=== PATIENT | female | born 1995 | race Caucasian/White ===

== ENCOUNTER 2023-03-30 04:49 | Inpatient (IN) | payer BC, SELFPAY ==
[2023-03-30] VITALS (86 sets, daily range): BP systolic 86–133; BP diastolic 17–97; PULSE 60–103; RESP 16; TEMP 36.1–37.5; O2SAT 96–100; BMI 38.5
--- NOTE | 2023-03-30 04:49 | LDADM ---
This patient, Dasha Sung, was admitted to Labor/Delivery/Recovery 103 on 03/30/23 at 04:49. Plans for labor, pain management and were discussed with patient. Patient/family oriented to hospital policies and general routines including ID bracelet, bed and alarms, visiting hours, pain management, procedures, bathroom and other care routines, personal items, smoking policy, room service/diet and guest tray routines, security routines, and visiting hours. Patient/Family are encouraged to report perceived risks to care and to ask questions if they do not understand what they are told or what they should do. See [facility]BIX for further documentation.
[2023-03-30 05:36] LABS: Basophils Percent Auto 0.2 % (0.2-1.2); Eosinophils Absolute Auto 0.1 K/mm3 (0-0.3); Eosinophils Percent Auto 0.7 % (0-4.4); Hematocrit 35.5 % (37.0-47.0); Hemoglobin 12.7 g/dL (12.0-15.0); Immature Granulocyte Absolute 0.05 K/mm3 (0.00-0.031); Immature Granulocyte Percent A 0.4 % (0-0.5); Lymphocytes Absolute Auto 2.75 K/mm3 (0.9-3.2); Lymphocytes Percent Auto 24.6 % (18.3-44.2); Mean Corpuscular HGB Conc 35.8 g/dl (32-36); Mean Corpuscular Hemoglobin 33.2 pg (26-34); Mean Corpuscular Volume 92.7 fl (80-100); Mean Platelet Volume 10.7 fl (7.4-10.4); Monocytes Absolute Auto 0.6 K/mm3 (0.1-0.6); Monocytes Percent Auto 5.2 % (2.6-8.5); Neutrophils Absolute Auto 7.7 K/mm3 (1.3-6.7); Neutrophils Percent Auto 68.9 % (45.5-73.1); Platelet Count Result 197 k/mm3 (150-375); Red Blood Count 3.83 M/mm3 (4.2-5.4); Red Cell Distribution Width 12.5 % (11.5-14.5); White Blood Count 11.2 K/mm3 (4.5-10.0)
[2023-03-30] MEDS: LACTATED RINGERS 1,000 ML 125 ML IV CONT ×2 (05:57→10:05)
[2023-03-30] MEDS: CLINDAMYCIN 900 MG/D5W 50 ML 900 MG/50 ML PIGGYBACK 100 MG (05:58)
--- NOTE | 2023-03-30 06:01 | PM.IMHP ---
H&P: HPI History of Present Illness Date/Time: 03/30/23 06:01 Chief Complaint: Adduction labor at term with positive group B strep Narrative: this is a 27-year-old 011 last menstrual period was unknown, EDC is 04/04/2023, confirmed by first-trimester ultrasound who presents at 39 weeks gestation for induction of labor. She is positive for group B strep her has otherwise been uncomplicated she does take paroxetine peas pr and Wellbutrin PMFSH Family History Family History Other Unknown family medical history Social History Social History Smoking status: Never smoker Substance use: never Lack of Transportation: No Lack of Food: Never True Current Housing: I Have Housing Concerned About Future Housing: No Difficulty Paying Gas/Electric Bills: No Difficulty Paying for Meds: No Currently Unemployed: No Education: Bachelor's Degree Difficulty w/ Childcare or Family Care: No Spiritual care concerns: No Meds Home Medications and Allergies Home Medications Medication Instructions Recorded Confirmed Type BuSpar 5 mg PO DAILY 03/24/23 03/30/23 History bupropion HCl 150 mg 24 hr tablet, 150 mg PO DAILY 03/24/23 03/30/23 History extended release paroxetine HCl 40 mg tablet 60 mg PO QAM 03/24/23 03/30/23 History vits no.126-ferrous fum 1 tablet PO DAILY 03/24/23 03/30/23 History 28 mg iron-folic acid 800 mcg tablet (Classic ) Allergies Allergy/AdvReac Type Severity Reaction Status Date / Time cephalexin [From Keflex] Allergy Rash Verified 03/24/23 14:01 Penicillins Allergy Rash Verified 03/24/23 14:01 Sulfa (Sulfonamide Allergy Rash Verified 03/24/23 14:01 Antibiotics) sulfamethoxazole Allergy Rash Verified 03/24/23 14:01 [From Septra] trimethoprim [From ] Allergy Rash Verified 03/24/23 14:01 Vital Signs Vital Signs - 24 hr 03/30/23 05:21 03/30/23 05:30 03/30/23 05:45 Pulse Rate 103 H 95 91 Blood Pressure 130/93 H 124/79 122/75 Oxygen Delivery 03/30/23 06:00 10/02/23 05:29 Pulse Rate 93 Blood Pressure 129/80 Oxygen Delivery Room Air Exam Const: General: cooperative, healthy appearing and comfortable Nutritional Appearance: average body habitus Orientation/consciousness: oriented to person, oriented to place and oriented to time HENMT: Head: normal to inspection Resp: Effort & Inspection: normal respiratory effort Cardio: Rate: regular rate Rhythm: regular rhythm Heart sounds: S1 normal heart sound present and S2 normal heart sound present GI: Inspection: normal to inspection ( soft gravid uterus) : External Female Exam: normal external appearance Speculum Exam - Vagina: normal appearance of the vagina Speculum Exam - Cervix: normal appearance of the cervix ( . FHTs reassuring clindamycin begun.) H&P: Results Labs Labs: Short CBC 03/30/23 Range/Units 05:14 WBC 11.2 H (4.5-10.0) K/mm3 Hgb 12.7 (12.0-15.0) g/dL Hct 35.5 L (37.0-47.0) % Plt Count 197 (150-375) k/mm3 Assessment and Plan Assessment and plan (1) Term : Code(s): Z34.90 - Encounter for supervision of normal , unspecified, unspecified trimester Status: Acute (2) Positive testing for group B Streptococcus: Code(s): B95.1 - Streptococcus, group B, as the cause of diseases classified elsewhere Status: Acute Plan medical induction of labor. Group B strep prophylaxis. Spontaneous vaginal delivery is expected.
[2023-03-30] MEDS: OXYTOCIN 30 UNITS/NS 500 ML 30 UNITS/500 ML BAG IV CONT (06:08)
--- NOTE | 2023-03-30 06:14 | PM.OBPNLAB ---
Pain Control Date/time seen: 03/30/23 06:14 Pain control: tolerating well Pelvic Exam Dilation (cm): 4 Effacement (%): 75 station: -1 Amniotic membrane status: Ruptured Comments: mec stained
[2023-03-30 06:26] LABS: HIV 1/2 Ab P24 Ag Result Negative (Negative)
--- NOTE | 2023-03-30 07:02 | WPDANESEPP ---
Anes - Eval Pre Procedure Procedure: labor epidural Date/Time: 03/30/23 07:02 Surgeon: niurka Preop Diagnosis: pain during labor Pre Op Diagnosis: IOL Patient Data Age: 27 Gender: F Height: 1.65 m Weight: 105 kg Last Vital Signs Pulse 85 03/30/23 07:00 BP 129/83 03/30/23 07:00 O2 Del Method Room Air 03/30/23 05:29 Allergies Allergy/AdvReac Type Severity Reaction Status Date / Time cephalexin [From Keflex] Allergy Rash Verified 03/24/23 14:01 Penicillins Allergy Rash Verified 03/24/23 14:01 Sulfa (Sulfonamide Allergy Rash Verified 03/24/23 14:01 Antibiotics) sulfamethoxazole Allergy Rash Verified 03/24/23 14:01 [From ] trimethoprim [From ] Allergy Rash Verified 03/24/23 14:01 Home Medications Medication Instructions Recorded Confirmed Type BuSpar 5 mg PO DAILY 03/24/23 03/30/23 History bupropion HCl 150 mg 24 hr tablet, 150 mg PO DAILY 03/24/23 03/30/23 History extended release paroxetine HCl 40 mg tablet 60 mg PO QAM 03/24/23 03/30/23 History vits no.126-ferrous fum 1 tablet PO DAILY 03/24/23 03/30/23 History 28 mg iron-folic acid 800 mcg tablet (Classic ) Laboratory Tests 03/30/23 05:14 WBC 11.2 H K/mm3 (4.5-10.0) RBC 3.83 L M/mm3 (4.2-5.4) Hgb 12.7 g/dL (12.0-15.0) Hct 35.5 L % (37.0-47.0) MCV 92.7 fl (80-100) MCH 33.2 pg (26-34) MCHC 35.8 g/dl (32-36) RDW 12.5 % (11.5-14.5) Plt Count 197 k/mm3 (150-375) MPV 10.7 H fl (7.4-10.4) Immature Gran % (Auto) 0.4 % (0-0.5) Neut % (Auto) 68.9 % (45.5-73.1) Lymph % (Auto) 24.6 % (18.3-44.2) [place] % (Auto) 5.2 % (2.6-8.5) Eos % (Auto) 0.7 % (0-4.4) Baso % (Auto) 0.2 % (0.2-1.2) Lymph # (Auto) 2.75 K/mm3 (0.9-3.2) [place] # (Auto) 0.6 K/mm3 (0.1-0.6) Eos # (Auto) 0.1 K/mm3 (0-0.3) Baso # (Auto) 0.0 K/mm3 (0.0-0.1) Abs Immat Gran (auto) 0.05 H K/mm3 (0.00-0.031) Absolute Neuts (auto) 7.7 H K/mm3 (1.3-6.7) Absolute Nucleated RBC 0.0 K/mm3 (0.0-0.012) Nucleated RBC % 0.0 % (0.0-0.2) RPR Pending HIV 1&2 Ab/P24 Ag 4thGn Negative (Negative) Patient hx anesthesia problems: none Family hx anesthesia problems: none Results Review: All pre-operative results and documents have been reviewed as part of the pre-operative evaluation. [facility] Past Medical History Medical History (Updated 03/30/23 @ 07:03 by Tammie Koch CRNA) IUP (intrauterine ), incidental Family History Family History Other Unknown family medical history Social History Social History Smoking status: Never smoker Substance use: never Lack of Transportation: No Lack of Food: Never True Current Housing: I Have Housing Concerned About Future Housing: No Difficulty Paying Gas/Electric Bills: No Difficulty Paying for Meds: No Currently Unemployed: No Education: Bachelor's Degree Difficulty w/ Childcare or Family Care: No Spiritual care concerns: No Exam Day of Procedure 03/30/23 07:02
[2023-03-30] MEDS: ONDANSETRON INJ 4 MG/2 ML VIAL IV PUSH (09:25)
--- NOTE | 2023-03-30 11:39 | PM.OBPNLAB ---
Pain Control Date/time seen: 03/30/23 11:39 Pain control: tolerating well and epidural Pelvic Exam Dilation (cm): 6 Effacement (%): 90 station: -1 Amniotic membrane status: Ruptured
--- NOTE | 2023-03-30 12:08 | PM.OBPRVD ---
OB - Delivery Note Procedure Delivery date: 03/30/23 Procedure: mil/gbs prophylaxis Induction method: AROM Delivery augmentation: Pitocin Delivery monitor: External FHT Route of delivery: Episiotomy description: None Laceration Description: Perineal - 1st Degree Delivery repair: vicryl Specimen: No Quantitative Blood Loss (ml): 160 Anesthesia type: Epidural Disposition: [place] Baby Date of : 03/30/23 Time of : 11:54 Weeks of gestation at delivery: 40 gender: Female presentation: vertex position: Right Occiput Anterior Placenta delivery description: Spontaneous Cord Vessel Description: 3 Vessels score one minute: 5 score five minutes: 9 Narrative: clinda x 1
--- NOTE | 2023-03-30 12:09 | P.DS_ITS ---
DS: Admitting Diagnosis Discharge Date 04/01/2023 Admitting Diagnosis Term /positive group B strep DS: Discharge Diagnosis Discharge Diagnosis (1) Positive testing for group B Streptococcus: Code(s): B95.1 - Streptococcus, group B, as the cause of diseases classified elsewhere Status: Acute (2) Term : Code(s): Z34.90 - Encounter for supervision of normal , unspecified, unspecified trimester Status: Acute DS: Summary Hospital Course Reason for hospitalization: patient was admitted on 03/30/2023 for medical induction of labor. Hospital Course: Patient had successful spontaneous vaginal delivery with group B strep prophylaxis. Her hospital course was unremarkable. She remained afebrile. She was up, voiding without difficulty, eating regular diet, ambulating, generally without complaints. Time Spent with Patient Time attestation: Total time spent providing and/or coordinating discharge services: Exam Const: General: cooperative, healthy appearing and comfortable Nutritional Appearance: average body habitus Orientation/consciousness: oriented to person, oriented to place and oriented to time Resp: Effort & Inspection: normal respiratory effort Cardio: Rate: regular rate Rhythm: regular rhythm Heart sounds: S1 normal heart sound present and S2 normal heart sound present GI: Inspection: normal to inspection ( Fundus firm below umbilicus) DS: Data Data Completed and Pending Labs on day of discharge: Labs from last 24 hours 03/30/23 05:14 WBC 11.2 H RBC 3.83 L Hgb 12.7 Hct 35.5 L MCV 92.7 MCH 33.2 MCHC 35.8 RDW 12.5 Plt Count 197 MPV 10.7 H Immature Gran % (Auto) 0.4 Neut % (Auto) 68.9 Lymph % (Auto) 24.6 [place] % (Auto) 5.2 Eos % (Auto) 0.7 Baso % (Auto) 0.2 Lymph # (Auto) 2.75 [place] # (Auto) 0.6 Eos # (Auto) 0.1 Baso # (Auto) 0.0 Abs Immat Gran (auto) 0.05 H Absolute Neuts (auto) 7.7 H Absolute Nucleated RBC 0.0 Nucleated RBC % 0.0 RPR Pending HIV 1&2 Ab/P24 Ag 4thGn Negative Blood Type O Positive Antibody Screen Negative Discharge Plan Discharge Attending physician on discharge: Leo Giordano Discharging Clinician: Leo Giordano Patient Disposition: Home, Self-Care Activity: may shower and pelvic rest Diet: heart healthy Wound Care Instructions: follow printed instructions Patient Instructions: Antibiotic Form Stand Alone Forms: General Discharge Information Follow-up/Referrals: Leo Giordano MD [Physician] - Discharge Medications: Continued paroxetine HCl 40 mg Tablet 60 mg PO QAM bupropion HCl 150 mg Tablet Extended Release 24 Hr 150 mg PO DAILY Classic 28 mg iron- 800 mcg Tablet 1 tablet PO DAILY BuSpar 5 mg PO DAILY Date of admission: 03/30/23 04:49 Primary Care Provider: UNKNOWN,DOCTOR Admitting Provider: Leo Giordano Attending physician on admission: Leo Giordano Condition: Stable
[2023-03-30] MEDS: OXYTOCIN 30 UNITS/NS 500 ML 30 UNITS/500 ML BAG 125 UNITS IV CONT (12:29)
[2023-03-30] MEDS: ACETAMINOPHEN 325 MG TABLET 650 MG PO (12:59)
[2023-03-30 13:36] LABS: Rapid Plasma Reagin Non-Reactive (NonReactive)
--- NOTE | 2023-03-30 14:35 | PC.NURSE ---
Patient transferred to post room #285 via wheelchair. Support person present. Oriented to unit, room, information board, rooming in, admission packet and security measures. Patient verbalizes understanding.
[2023-03-30] MEDS: IBUPROFEN 600 MG TABLET PO (17:43)
[2023-03-30] MEDS: diphenhydrAMINE HCl CAP 25 MG CAPSULE 50 MG PO (20:00)
[2023-03-30] MEDS: POLYSACCHARIDE IRON COMPLEX 150 MG CAPSULE PO (20:01)
[2023-03-31 04:00] VITALS: BP 115/75; PULSE 68; RESP 16; TEMP 37.2; O2SAT 100; O2SAT 99
[2023-03-31 04:23] LABS: Hematocrit 32.7 % (37.0-47.0); Hemoglobin 11.5 g/dL (12.0-15.0)
--- NOTE | 2023-03-31 06:26 | PM.OBPNVD ---
OB - PN: Subj Subjective Date/time seen: 03/31/23 06:26 Patient comments: no complaints and pain well controlled baby status: doing well OB - PN: Obj Data Labs 03/31/23 03:53 Labs: Laboratory Results - last 24 hr 03/30/23 03/31/23 05:14 03:53 Hgb 11.5 L Hct 32.7 L RPR Non-reactive HIV 1&2 Ab/P24 Ag 4thGn Negative Blood Type O Positive Antibody Screen Negative OB - PN A/P Plan day: 1 Plan: routine care Time Spent With Patient Time: Total time spent is greater than 50% in coordination of care (as documented) at patient's floor/unit and/or counseling patient: Time with patient: less than 15 minutes Exam Const: General: cooperative, healthy appearing and comfortable Nutritional Appearance: average body habitus Orientation/consciousness: oriented to person, oriented to place and oriented to time HENMT: Head: normal to inspection Resp: Effort & Inspection: normal respiratory effort Cardio: Rate: regular rate Rhythm: regular rhythm Heart sounds: S1 normal heart sound present and S2 normal heart sound present GI: Inspection: normal to inspection (fundus firm)
[2023-03-31 07:55] VITALS: BP 117/81; PULSE 70; RESP 16; TEMP 37; O2SAT 99
[2023-03-31] MEDS: DOCUSATE SODIUM 100 MG CAPSULE PO (08:23)
[2023-03-31] MEDS: MULTIVIT/MIN/PREN/FOL AC/IRON TABLET 1 TAB PO (08:23)
[2023-03-31] MEDS: IBUPROFEN 600 MG TABLET PO ×2 (11:42→19:40)
--- NOTE | 2023-03-31 12:43 | WPDANLDPN2 ---
Anes-Prog Note L&D Date/Time: 03/31/23 12:43 Comfortable throughout: labor and delivery Neuraxial method: epidural Epidural/Spinal procedure site: clean & non-tender Neuro status: Neuro function grossly intact. Cardiovascular status: normal Respiratory status: normal Airway patency: baseline Mental status: baseline Post-Op hydration status: normal Vital Signs: Last Vital Signs Temp 98.6 F 03/31/23 07:55 Pulse 70 03/31/23 07:55 Resp 16 03/31/23 07:55 BP 117/81 03/31/23 07:55 Pulse Ox 99 03/31/23 07:55 O2 Del Method Room Air 03/31/23 04:00 Pain score (VAS): 0 I/O: Intake & Output 03/30/23 03/31/23 03/31/23 23:59 07:59 15:59 Intake Total 300 Balance 300 Post-procedural complaints: none Patient feedback: Patient satisfied with anesthetic care.
[2023-03-31 19:40] VITALS: BP 118/70; PULSE 85; RESP 16; TEMP 37; O2SAT 98
--- NOTE | 2023-04-01 06:45 | PC.NURSE ---
PT introductions made and plan of care discussed per post , pain management, daily care activities, bottle feeding, and pending discharge to home. PT and spouse both recipients of such instructions and no barriers to learning identified at this time. PT received such instructions per one to one discussion, mom baby care guide, and demonstrations this shift. PT verbalized understanding of such care.
--- NOTE | 2023-04-01 06:47 | PM.OBPNVD ---
OB - PN: Subj Subjective Date/time seen: 04/01/23 06:47 Patient comments: no complaints and pain well controlled baby status: doing well OB - PN: Obj Data Labs 03/31/23 03:53 OB - PN A/P Plan day: 2 Plan: routine care, discharge home and follow up 6 weeks Time Spent With Patient Time: Total time spent is greater than 50% in coordination of care (as documented) at patient's floor/unit and/or counseling patient: Time with patient: less than 15 minutes Exam Const: General: cooperative, healthy appearing and comfortable Nutritional Appearance: average body habitus Orientation/consciousness: oriented to person, oriented to place and oriented to time Resp: Effort & Inspection: normal respiratory effort Cardio: Rate: regular rate Rhythm: regular rhythm Heart sounds: S1 normal heart sound present and S2 normal heart sound present GI: Inspection: normal to inspection ( fundus firm below the umbilicus)
[2023-04-01 07:25] VITALS: BP 118/80; PULSE 68; RESP 16; TEMP 36.5; O2SAT 100
[2023-04-01] MEDS: MULTIVIT/MIN/PREN/FOL AC/IRON TABLET 1 TAB PO (09:40)
[2023-04-01] MEDS: IBUPROFEN 600 MG TABLET PO (09:40)
[2023-04-01] MEDS: DOCUSATE SODIUM 100 MG CAPSULE PO (09:40)
--- NOTE | 2023-04-01 10:12 | PC.NURSE ---
On 04/01/23, the student, Keiko Zavala, provided care and completed [facility] documentation on this patient. I have reviewed the student's documentation and agree with the findings.
--- NOTE | 2023-04-01 10:15 | PC.NURSE ---
Patient to view the discharge video Mother & Baby Care, The First Two Weeks on line at home. Patient was given the opportunity and encouraged to ask questions. Patient verbalized understanding of discharge information shared and has been given the mother/baby guide for home reference.
--- NOTE | 2023-04-01 10:47 | PC.NURSE ---
PT discharged to home ambulatory accompanied by spouse and and walked to waiting car. Follow up appts confirmed
[2023-04-03 11:11] VITALS: BP 116/73; PULSE 82; RESP 18; TEMP 36.7; O2SAT 98
== END 2023-04-01 10:47 | disposition home or self-care (01) | DRG 807 ==
LOC: ANHLDR 12:12 → ANHOB2 14:38
PROVIDERS: Admitting Provider Obstetrics & Gynecology; Visit Provider Obstetrics & Gynecology
DX: O99.824 Streptococcus B carrier state complicating childbirth (principal); Z37.0 Single live birth; O70.0 First degree perineal laceration during delivery; O77.0 Labor and delivery complicated by meconium in amniotic fluid; Z3A.39 39 weeks gestation of pregnancy
CPT/HCPCS: 36415; 85014; 85018; 85025; 86592; 86703; 86850; 86900; 86901; A9270; G0432; J2405; J2590; J2795; J7120